=== PATIENT | female | born 1960 | race African-American/Black ===

== ENCOUNTER 2022-11-19 18:55 | Emergency (ER) | payer BC, SELFPAY ==
--- NOTE | ~2022-11-19 | CT_ITS ---
EXAMINATION: CT abdomen pelvis wo con DATE: 11/19/2022 22:40 INDICATION: right flank pain TECHNIQUE: Computed tomography (CT) of the abdomen and pelvis was performed without intravenous contr ast. Automated exposure control and iterative reconstruction technique were employed. The dose-length product was 592.68 mGy-cm. COMPARISON: None. FINDINGS: Lower thorax: Bibasilar dependent subsegmental consolidation. Aortic valve, mitral, and coronary carlos enrique ry calcification. Small volume pericardial fluid. Liver: Normal. Biliary/Gallbladder: Mildly distended, with dependent sludge. No bile duct dilation. Pancreas: No mass or duct dilation. Spleen: Normal. Adrenals:No mass. Kidneys: No mass, stone, or hydronephrosis. GI tract: No small or large bowel dilation. Normal appendix. Mesentery/Peritoneum: No ascites, mass, or free air. Retroperitoneum: No mass. Atherosclerotic abdominal aortic and/or arterial calcifications. Pelvis: Pelvic organs are within normal limits. Soft Tissues: Soft tissues and body wall unremarkable. Bones: No acute osseous finding. IMPRESSION: Small pericardial effusion. Bibasilar atelectasis/consolidation. No acute abdominopelvic process dete cted. Reviewed, dictated and finalized at location [facility]. IMPRESSION: Small pericardial effusion. Bibasilar atelectasis/consolidation. No acute abdom inopelvic process detected.
[2022-11-19 19:41] VITALS: PULSE 97; RESP 16; TEMP 36.9; O2SAT 98
[2022-11-19 20:48] LABS: Basophils Absolute Auto 0.1 K/mm3 (0.0-0.1); Basophils Percent Auto 0.3 % (0.2-1.2); Eosinophils Absolute Auto 0.1 K/mm3 (0-0.3); Eosinophils Percent Auto 0.6 % (0-4.4); Hemoglobin 11.4 g/dL (12.0-15.0); Immature Granulocyte Absolute 0.06 K/mm3 (0.00-0.031); Immature Granulocyte Percent A 0.4 % (0-0.5); Lymphocytes Absolute Auto 1.23 K/mm3 (0.9-3.2); Lymphocytes Percent Auto 8.5 % (18.3-44.2); Mean Corpuscular HGB Conc 32.6 g/dl (32-36); Mean Corpuscular Hemoglobin 27.9 pg (26-34); Mean Corpuscular Volume 85.6 fl (80-100); Mean Platelet Volume 9.9 fl (7.4-10.4); Monocytes Absolute Auto 1.9 K/mm3 (0.1-0.6); Monocytes Percent Auto 13.1 % (2.6-8.5); Neutrophils Absolute Auto 11.1 K/mm3 (1.3-6.7); Neutrophils Percent Auto 77.1 % (45.5-73.1); Platelet Count Result 280 k/mm3 (150-375); Red Blood Count 4.09 M/mm3 (4.2-5.4); Red Cell Distribution Width 14.4 % (11.5-14.5); White Blood Count 14.4 K/mm3 (4.5-10.0)
[2022-11-19 20:59] LABS: Alanine Aminotransferase 18 U/L (6-35); Albumin Level 3.9 g/dL (3.5-5.1); Alkaline Phosphatase 129 U/L (38-126); Anion Gap 10 mmol/L (8-16); Aspartate Amino Transferase 21 U/L (14-36); Blood Urea Nitrogen 27 mg/dL (7-17); Calcium 8.7 mg/dL (8.4-10.2); Carbon Dioxide 24 mmol/L (22-30); Chloride 101 mmol/L (98-107); Estimated CRCL calculation 32 ml/min; Estimated Glomerular Filt Rate 35; Glucose 134 mg/dL (65-110); Potassium 3.6 mmol/L (3.4-5.0); Sodium 135 mmol/L (137-145)
[2022-11-20 01:16] VITALS: BP 112/71; PULSE 89; RESP 16; O2SAT 99
[2022-11-20 01:26] LABS: Appearance Urine Turbid (Clear); Bacteria Urine 4+ /hpf; Bilirubin Urine Negative (Negative); Blood Urine 2+ (Negative); Color Urine Dark Yellow (Yellow); Glucose Urine UA Negative (Negative); Hyaline Casts Urine Present /lpf; Ketones Urine Trace mg/dL (Negative); Leukocyte Esterase Ur 3+ LEU/UL (Negative); Mucus Urine Present /lpf; Nitrate Urine Positive (Negative); Non Pathogenic Casts >20; Protein Urine 2+ mg/dL (Negative); RBC Urine 0-2 /hpf (0-2); Specific Grav Ur 1.025 (1.001-1.035); Squamous Epithelial Cell Urine Few /hpf (Few); WBC Urine >100 /hpf
[2022-11-20 01:29] LABS: Add Urine Microscopic? YES
--- NOTE | 2022-11-20 01:55 | ED.GENADULT ---
HPI - General Adult General Chief complaint: Urogenital-Female Stated complaint: flank pain Time Seen by Provider: 11/20/22 00:33 History of Present Illness HPI narrative: Is a 62-year-old female who presents the emergency department with chief complaint of right flank pain. Patient reports that she started having a uncomfortable feeling in her right flank was given morphine by EMS and reports that her pain is doing much better now. Patient reports that she has had prior history of a kidney stone that passed on its own patient also reports she has prior history of stroke and currently a resident of a local [facility]. Related Data Allergies Allergy/AdvReac Type Severity Reaction Status Date / Time Penicillins Allergy Anaphylaxis Verified 11/20/22 01:29 Review of Systems Review of Systems: A 10 system review of systems was completed on the patient and is negative except for what is stated in the HPI. Nursing and ancillary documentation was reviewed. [facility] Past Medical History Medical History Anxiety Hyperlipidemia Social History Social History Social History: lives in a single-story home. Prior to admission patient was independent Exam Narrative: GENERAL: Well-appearing, well-nourished, and in no acute distress. HEAD: Normocephalic, atraumatic. EYES: PERRLA and EOMI. ENT: Nares clear, no rhinorrhea or epistaxis. Mucous membranes moist. NECK: Supple. CHEST: Clear to auscultation. No respiratory distress. HEART: Regular rate and rhythm. No murmur heard. Normal peripheral pulses. ABDOMEN: Soft, nontender, nondistended, normal active bowel sounds. EXTREMITIES: Normal range of motion. No edema. SKIN: Warm, dry, no rash. NEURO: No focal deficits. Alert and oriented x3. PSYCH: Normal mood and affect. Course Vital Signs Vital signs: Vital Signs Temperature 36.9 C 11/19/22 19:41 Pulse Rate 97 11/19/22 19:41 Respiratory Rate 16 11/19/22 19:41 Pulse Oximetry 98 11/19/22 19:41 Temperature 36.9 C 11/19/22 19:41 Pulse Rate 89 11/20/22 01:16 Respiratory Rate 16 11/20/22 01:16 Blood Pressure 112/71 11/20/22 01:16 Pulse Oximetry 99 11/20/22 01:16 Medical Decision Making MDM Narrative Medical decision making narrative: Differential diagnosis includes urinary tract infection, urosepsis, pyelonephritis, ureterolithiasis, intra-abdominal infection, colitis Laboratory studies were obtained which showed a white blood cell count of 14.4 electrolytes showed a creatinine of 1.5 liver enzymes that showed a elevated alkaline phosphatase of 129 urinalysis was turbid and had greater than 100 white blood cells in the urine and 4+ bacteria. Patient underwent CT scan which showed no acute obstructive process there was a trace pericardial effusion The patient be started on Cipro patient is currently asymptomatic and the patient be given a prescription for both Cipro and a short course of pain medication. Vital Signs Vital Signs: Vital Signs Temperature 36.9 C 11/19/22 19:41 Pulse Rate 97 11/19/22 19:41 Respiratory Rate 16 11/19/22 19:41 Pulse Oximetry 98 11/19/22 19:41 Temperature 36.9 C 11/19/22 19:41 Pulse Rate 89 11/20/22 01:16 Respiratory Rate 16 11/20/22 01:16 Blood Pressure 112/71 11/20/22 01:16 Pulse Oximetry 99 11/20/22 01:16 Lab Data 11/19/22 20:36 11/19/22 20:36 Labs: Lab Results 11/19/22 11/19/22 11/20/22 Range/Units 20:36 20:36 01:02 WBC 14.4 H (4.5-10.0) K/mm3 RBC 4.09 L (4.2-5.4) M/mm3 Hgb 11.4 L (12.0-15.0) g/dL Hct 35.0 L (37.0-47.0) % MCV 85.6 (80-100) fl MCH 27.9 (26-34) pg MCHC 32.6 (32-36) g/dl RDW 14.4 (11.5-14.5) % Plt Count 280 (150-375) k/mm3 MPV 9.9 (7.4-10.4) fl Immature Gran % (Auto) 0.4 (0-0.5) % Neut
[2022-11-20] MEDS: CIPROFLOXACIN 500 MG TAB PO (02:02)
[2022-11-20 02:04] VITALS: BP 125/72; PULSE 90; RESP 12; O2SAT 97
[2022-11-20] MEDS: HYDROcodone/acetaminophen (*CRX) 5-325 MG TABLET 1 TAB PO (02:15)
== END 2022-11-20 02:37 ==
PROVIDERS: General Practice; Emergency Provider Emergency Medicine
DX: N12 Tubulo-interstitial nephritis, not specified as acute or chronic (principal); E78.5 Hyperlipidemia, unspecified; Z86.73 Personal history of transient ischemic attack (TIA), and cerebral infarction without residual deficits; Z79.82 Long term (current) use of aspirin
CPT/HCPCS: 36415; 74176; 80053; 81001; 81025; 85025; 87077; 87086; 87088; 87186; 99284; A9270